=== PATIENT | female | born 1935 | race Caucasian/White ===

== ENCOUNTER 2021-05-02 21:11 | Emergency (ER) | payer MEDICARE, SELFPAY ==
--- NOTE | ~2021-05-02 | XR_ITS ---
EXAMINATION: XR CHEST CLINICAL INFORMATION: Shortness of breath COMPARISON: 06/04/2017 TECHNIQUE: Frontal view of the chest was obtained. FINDINGS: Normal symmetric lung volumes. No parenchymal consolidation. No pleural effusion. No pneumothorax. Cardiomegaly and pulmonary venous congestion without overt edema. Aorta is atherosclerotic. No acute osseous abnormalities. XR/XR chest 1V IMPRESSION: No acute pulmonary parenchymal abnormalities. Cardiomegaly and pulmonary venous congestion without overt edema.
[2021-05-02 21:21] VITALS: BP 155/64; PULSE 87; RESP 18; TEMP 36.6; O2SAT 97; BMI 38.7
--- NOTE | 2021-05-02 21:23 | ECG_ITS ---
Test Reason : A-FIB Blood Pressure : / mmHG Vent. Rate : 079 BPM Atrial Rate : 000 BPM P-R Int : 000 ms QRS Dur : 134 ms QT Int : 394 ms P-R-T Axes : 000 -26 002 degrees QTc Int : 451 ms Atrial fibrillation Right bundle branch block Abnormal ECG When compared with ECG of 04-JUN-2017 16:21, Right bundle branch block is now Present Referred By: Generic ED Physician Electronically Signed By:Davon Dove
[2021-05-02 21:43] LABS: MANUAL DIFF FLAG NO
[2021-05-02 21:54] LABS: Basophils Percent Auto 0.3 % (0-2); Eosinophils Absolute Auto 0.2 X10*3/uL (0.0-0.4); Eosinophils Percent Auto 2.2 % (0-4); Hematocrit 38.8 % (37.0-47.0); Hemoglobin 12.9 g/dl (12.0-16.0); Imm Gran Abs Auto 0.04 X10*3/uL (0.00-0.03); Imm Gran Pct Auto 0.4 % (0.0-0.4); Lymphocytes Absolute Auto 2.5 X10*3/uL (1.2-4.9); Lymphocytes Percent Auto 24.4 % (20-40); Mean Corpuscular HGB Conc 33.2 g/dl (31.0-35.0); Mean Corpuscular Volume 99.2 fL (80.0-98.0); Mean Platelet Volume 10.9 fL (9.4-12.3); Monocytes Absolute Auto 0.9 X10*3/uL (0.1-1.2); Monocytes Percent Auto 8.5 % (2-11); Neutrophils Absolute Auto 6.5 x10*3/uL (2.0-8.3); Neutrophils Percent Auto 64.2 % (45-73); Platelet Count 206 X10*3/uL (160-400); Red Blood Count 3.91 X10*6/uL (4.20-5.50); Red Cell Distribution Width 13.8 % (11.0-16.0); White Blood Count 10.2 X10*3/uL (4.8-10.8)
[2021-05-02 22:03] LABS: Anion Gap 15 (12-20); Blood Urea Nitrogen 21 mg/dL (9-16); Calcium 9.8 mg/dL (8.4-10.2); Carbon Dioxide 26 mmol/L (22-29); Chloride 106 mmol/L (96-108); Creatinine Clr Calc Pharmacy 51.3; Estimated Glomerular Filt Rate 52; Glucose Random 100 mg/dL (60-115); Potassium 4.6 mmol/L (3.3-5.1); Sodium 142 mmol/L (135-145); Troponin-I High Sensitivity 7.5 ng/L (<3.5-17.0)
[2021-05-02 22:24] VITALS: BP 138/69; PULSE 83; RESP 16; O2SAT 96
--- NOTE | 2021-05-02 22:34 | ED.ARRPALP ---
HPI - Arrhythmia/Palpitations General Chief Complaint: Arrhythmia/Palpitations Stated Complaint: heart feels racing hx of afib Time Seen by Provider: 05/02/21 22:33 History of Present Illness HPI narrative: Patient is an 85-year-old female with a history of atrial fibrillation. Baseline is on Coumadin. Presented today with having heart is shaking. Patient feels the heart is irregular. Not associated with shortness of breath not associated with diaphoresis not associated with dizziness not associated with near-syncope or syncope. Patient has some pain underneath her arm. There is no chest pain. There is no shortness of breath there is no diaphoresis. The pain in her right armpit is not associated with ambulation or exertion. No focal weakness. Patient from home. Been compliant with medications. Positive history of hypertension. No history of MS. No history of high cholesterol. No history of smoking. Patient denies any history of blood clots. No coughing no congestion or upper respiratory symptoms. Related Data Allergies Allergy/AdvReac Type Severity Reaction Status Date / Time hydrochlorothiazide Allergy Mild RASH Unverified 02/11/20 14:39 [From Oreticyl] From Oreticyl Allergy Mild RASH Uncoded 02/11/20 14:39 Hydrochlorothiazide Allergy Unknown Uncoded 02/01/12 00:00 Review of Systems Review of Systems: No fever no chills positive arm pain no diaphoresis Yes all other systems are reviewed and are negative [facility] Past Medical History Attestation statement: The following information was validated with the patient. Social History Social History Advance Directives: No Physical Exam Vital Signs: Vital Signs: Last Vital Signs Temp 98 F 05/02/21 21:21 Pulse 83 05/02/21 22:24 Resp 16 05/02/21 22:24 BP 138/69 05/02/21 22:24 Pulse Ox 96 05/02/21 22:24 BMI result Body Mass Index 38.7 Appearance: Alert. Oriented X3. No acute distress. Eyes: Pupils equal, round and reactive to light. ENT: Pharynx normal. Neck: Normal inspection. Neck supple. No lymph nodes noted. No crepitus CVS: Normal heart rate and rhythm. Pulses normal. Normal S1 and S2 Respiratory: No respiratory distress. Breath sounds normal. No Wheezing. No rales Abdomen: Soft and nontender. No rigidity. No distention. good BS x4 Skin: Skin warm and dry. Normal skin color. Normal skin turgor. Extremities: No lower extremity edema. Neurovascular intact to all extremities. No Lacerations. No Rash Neuro: Oriented X 3. No motor deficit. No sensory deficit. Moving all extermities. No slurred speech MDM - Arrhythmia/Palpitations MDM Narrative Medical decision making narrative: Patient well-appearing. Two sets of cardiac enzymes were negative. Patient's EKG showed an atrial fibrillation pattern. Heart rate was approximately 90. There is a new right bundle branch block. QTC was normal. Patient well-appearing otherwise. Electrolytes are normal. No arrhythmia noted other than the atrial fibrillation. Will discharge patient home. In stable condition. No new focal weakness. No chest pain. No diaphoresis. Lab Data Result diagrams: 05/02/21 21:39 05/02/21 21:39 Labs: Lab Results 05/02/21 05/02/21 05/02/21 Range/Units 21:39 21:39 21:39 WBC 10.2 (4.8-10.8) X10*3/uL RBC 3.91 L (4.20-5.50) X10*6/uL Hgb 12.9 (12.0-16.0) g/dl Hct 38.8 (37.0-47.0) % MCV 99.2 H (80.0-98.0) fL MCH 33.0 (27.0-33.0) pg MCHC 33.2 (31.0-35.0) g/dl RDW 13.8 (11.0-16.0) % Plt Count 206 (160-400) X10*3/uL MPV 10.9 (9.4-12.3) fL Immature Gran % (Auto) 0.4 (0.0-0.4) % Neut % (Auto) 64.2 (45-73) % Lymph % (Auto) 24.4 (20-40) % [place] % (Auto) 8.5 (2-11) % Eos % (Auto) 2.2 (0-4) % Baso % (Auto) 0.3 (0-2) % Lymph # (Auto) 2.5 (1.2-4.9) X10*3/uL [place] # (Auto) 0.9 (0.1-1.2) X10*3/uL Eos # (Auto) 0.2 (0.0-0.4) X10*3/uL Baso # (Auto) 0.0 (0.0-0.2) X10*3/uL Abs Immat Gran (auto) 0.04 H (0.00-0.03) X10*3/uL Absolute Neuts (auto) 6.5 (2.0-8.3) x10*3/uL Absolute Nucleated RBC 0.000 (0.0-0.012) X10*3/uL Nucleated RBC % (auto) 0.0 (0.0-0.2) /100WBC PT (9.9-13.0) SEC INR (0.9-1.1) Sodium 142 (135-145) mmol/L Potassium 4.6 (3.3-5.1) mmol/L Chloride 106 (96-108) mmol/L Carbon Dioxide 26 (22-29) mmol/L Anion Gap 15 (12-20) BUN 21 H (9-16) mg/dL Creatinine 1.02 (0.5-1.4) mg/dL Estim Creat Clear Calc 51.3 Estimated GFR 52 Random Glucose 100 (60-115) mg/dL Calcium 9.8 (8.4-10.2) mg/dL Troponin I High Sens 7.5 (<3.5-17.0) ng/L 05/02/21 05/02/21 Range/Units 22:52 22:52 WBC (4.8-10.8) X10*3/uL RBC (4.20-5.50) X10*6/uL Hgb (12.0-16.0) g/dl Hct (37.0-47.0) % MCV (80.0-98.0) fL MCH (27.0-33.0) pg MCHC (31.0-35.0) g/dl RDW (11.0-16.0) % Plt Count (160-400) X10*3/uL MPV (9.4-12.3) fL Immature Gran % (Auto) (0.0-0.4) % Neut % (Auto) (45-73) % Lymph % (Auto) (20-40) % [place] % (Auto) (2-11) % Eos % (Auto) (0-4) % Baso % (Auto) (0-2) % Lymph # (Auto) (1.2-4.9) X10*3/uL [place] # (Auto) (0.1-1.2) X10*3/uL Eos # (Auto) (0.0-0.4) X10*3/uL Baso # (Auto) (0.0-0.2) X10*3/uL Abs Immat Gran (auto) (0.00-0.03) X10*3/uL Absolute Neuts (auto) (2.0-8.3) x10*3/uL Absolute Nucleated RBC (0.0-0.012) X10*3/uL Nucleated RBC % (auto) (0.0-0.2) /100WBC PT 33.0 H (9.9-13.0) SEC INR 2.8 H (0.9-1.1) Sodium (135-145) mmol/L Potassium (3.3-5.1) mmol/L Chloride (96-108) mmol/L Carbon Dioxide (22-29) mmol/L Anion Gap (12-20) BUN (9-16) mg/dL Creatinine (0.5-1.4) mg/dL Estim Creat Clear Calc Estimated GFR Random Glucose (60-115) mg/dL Calcium (8.4-10.2) mg/dL Troponin I High Sens 8.3 (<3.5-17.0) ng/L Discharge Plan Discharge Clinical Impression: Palpitations, A-fib Patient Disposition: Home, Self-Care Instructions: A-fib (Atrial Fibrillation) (ED), Heart Palpitations (ED) Referrals: Physician,Unknown J [Primary Care Provider] - 2 days (Please follow-up with your switch maker in the next 2 days. Worsening condition return.)
[2021-05-02 23:07] LABS: INTERNATIONAL NORM RATIO 2.8 (0.9-1.1)
[2021-05-02 23:19] LABS: Troponin-I High Sensitivity 8.3 ng/L (<3.5-17.0)
== END 2021-05-03 00:01 | disposition home or self-care (01) ==
PROVIDERS: Emergency Provider Emergency Medicine Emergency Medical Services
DX: R00.2 Palpitations (principal); I48.91 Unspecified atrial fibrillation; Z79.01 Long term (current) use of anticoagulants; Z79.899 Other long term (current) drug therapy
CPT/HCPCS: 36415; 71045; 80048; 84484; 85025; 85610; 93005; 99283; 99284